=== PATIENT | female | born 1945 | race Caucasian/White ===

== ENCOUNTER 2022-01-10 04:25 | Day surgery (SDC) | payer OTHER, MEDICARE ==
[2022-01-08 16:39] VITALS: BMI 29.9
[2022-01-10] MEDS ORDERED: VASOPRESSIN 20 UNITS/ML VIAL IV ONE (12:59)
[2022-01-10] MEDS ORDERED: PROPOFOL 20 ML ONE ×2 (14:07→14:27)
[2022-01-10] MEDS ORDERED: DEXAMETHASONE SOD PHOSPHATE 4 MG/1 ML VIAL ONE (14:27)
[2022-01-10] MEDS ORDERED: LIDOCAINE HCL/PF 2% SDV 5ML VIAL ONE (14:27)
[2022-01-10] MEDS ORDERED: MIDAZOLAM HCL 2 MG/2 ML SINGLE DOSE VIAL ONE (14:28)
[2022-01-10] MEDS ORDERED: ACETAMINOPHEN 1000 MG/100 ML BAG IVPB ONE (14:33)
[2022-01-10] MEDS ORDERED: DOCUSATE SODIUM 100 MG CAPSULE (FP) PO PRN (15:51)
[2022-01-10] MEDS ORDERED: oxyCODONE HCL 5 MG TABLET PO PRN (15:51)
[2022-01-10] MEDS ORDERED: ACETAMINOPHEN INJECTION 100 ML IVPB ONE (16:09)
[2022-01-10] MEDS ORDERED: TAPENTADOL HYDROCHLORIDE 50 MG TABLET PO PRN (16:09)
[2022-01-10] MEDS ORDERED: ONDANSETRON 4 MG/2 ML VIAL IVPUSH PRN (16:26)
[2022-01-10] MEDS ORDERED: FENTANYL CITRATE/PF 50 MCG/ML VIAL ONE (16:43)
[2022-01-10] MEDS: DEXTROSE 5%-0.45% SALINE 1,000 ML IV SCH (17:10)
[2022-01-10] MEDS ORDERED: oxyCODONE HCL 5 MG TABLET PO ONE (20:00)
[2022-01-10] MEDS ORDERED: ceFAZolin 2 GRAM PREMIX BAG IVPB SCH (22:00)
[2022-01-10] MEDS: CEFAZOLIN SODIUM 2 GM in DEXTROSE 5%-WATER - 100 ML IVPB SCH (22:01)
[2022-01-11] MEDS: CEFAZOLIN SODIUM 2 GM in DEXTROSE 5%-WATER - 100 ML IVPB SCH ×2 (01:55→09:21)
[2022-01-11] MEDS: DEXTROSE 5%-0.45% SALINE 1,000 ML IV SCH (02:04)
[2022-01-11 10:20] VITALS: BP 151/73; PULSE 74; TEMP 98.2
== END 2022-01-11 11:25 | disposition home or self-care (01) ==
LOC: JASU-SURG 04:25 → JASUSAT 04:25 → J3W 17:58 → JASUSAT 01-11 11:25
PROVIDERS: ATTEND Urology
PROC: 0TSD0ZZ Reposition Urethra, Open Approach (ICD-10-PCS; principal; 2022-01-10 14:00)
PROC: 0JQC0ZZ Repair Pelvic Region Subcutaneous Tissue and Fascia, Open Approach (ICD-10-PCS; 2022-01-10 14:00)
DX: N39.3 Stress incontinence (female) (male) (principal); N81.10 Cystocele, unspecified
CPT/HCPCS: 57240; 57288; C1771; 88302-TC; 94760